=== PATIENT | female | born 1995 | race African-American/Black ===

== ENCOUNTER 2022-10-01 11:31 | Emergency (ER) | payer MEDICAID, SELFPAY ==
--- NOTE | ~2022-10-01 | US_ITS ---
EXAMINATION: US OB LIMITED CLINICAL INFORMATION: Mid abdominal pain at 6 months of . LMP of 03/27/2022. COMPARISON: None TECHNIQUE: Sonographic imaging of the pelvis is performed using a transabdominal transducer. FINDINGS: Limited OB imaging examination is performed. Single viable intrauterine gestation is present. The fetus is in cephalic presentation. Normal movement is observed. heart rate is 152 bpm. Limited biometry performed. Femur length 5.5 cm, corresponding to estimated gestational age of 29 weeks, 1 day. The amniotic fluid volume is normal. The anterior placenta has normal echotexture. No placenta previa. The maternal structures peripheral to the gravid uterus are not well evaluated on this exam. The maternal ovaries are not seen. US/US OB limited IMPRESSION: Limited OB ultrasound demonstrates a single viable intrauterine gestation with heart rate of 152 bpm, normal amniotic fluid volume and normal appearance of the anterior placenta.
[2022-10-01 11:49] VITALS: BP 128/71; PULSE 73; RESP 18; TEMP 37; O2SAT 98; BMI 27.3
[2022-10-01 12:18] LABS: Hematocrit 36.1 % (37.0-47.0); Hemoglobin 12.4 g/dl (12.0-16.0); Mean Corpuscular HGB Conc 34.3 g/dl (31.0-35.0); Mean Corpuscular Hemoglobin 31.1 pg (27.0-33.0); Mean Corpuscular Volume 90.5 fL (80.0-98.0); Platelet Count 223 X10*3/uL (160-400); Red Blood Count 3.99 X10*6/uL (4.20-5.50); Red Cell Distribution Width 13.3 % (11.0-16.0)
[2022-10-01 12:19] LABS: WBC ABN SCTR FOR CBC 1
[2022-10-01 12:32] LABS: Alanine Aminotransferase 11 U/L (0-31); Albumin Level 3.3 g/dL (3.5-5.0); Alkaline Phosphatase 62 U/L (39-117); Anion Gap 13 (12-20); Aspartate Amino Transferase 14 U/L (5-31); Bilirubin Total 0.3 mg/dL (0.0-1.0); Blood Urea Nitrogen 10 mg/dL (9-16); Calcium 9.3 mg/dL (8.4-10.2); Carbon Dioxide 21 mmol/L (22-29); Chloride 106 mmol/L (96-108); Creatinine Clr Calc Pharmacy 119.1; Estimated Glomerular Filt Rate > 60; Glucose Random 83 mg/dL (60-115); Magnesium 1.9 mg/dL (1.6-2.6); Potassium 4.4 mmol/L (3.3-5.1); Sodium 136 mmol/L (135-145)
[2022-10-01 12:34] LABS: HCG Quantitative 3437 mIU/mL
[2022-10-01 12:43] LABS: Band Neutrophils Percent 0 % (3-5); Basophils Percent Manual 1 % (0-2); Eosinophils Percent Manual 1 % (0-4); Lymphocytes Percent Manual 29 % (20-40); Monocytes Percent Manual 5 % (2-11); Neutrophils Percent Manual 64 % (45-73)
[2022-10-01 12:45] LABS: Basophils Abs Manual 0.1 X10*3/uL (0.0-0.2); Eosinophils Absolute Manual 0.1 X10*3/uL (0.0-0.4); Lymphocytes Absolute Manual 2.5 X10*3/uL (1.2-4.9); Monocytes Absolute Manual 0.4 X10*3/uL (0.1-1.2); Neutrophils Absolute Manual 5.6 X10*3/uL (2.0-8.3); Platelet Estimate NORMAL (NORMAL); Platelet Morphology Comment NORMAL; RBC Morphology NORMAL; White Blood Count 8.7 X10*3/uL (4.8-10.8)
--- NOTE | 2022-10-01 13:03 | ED.GENADULT ---
HPI - General Adult General Chief complaint: General Medical Stated complaint: , headaches, belly pain Time Seen by Provider: 10/01/22 12:39 Source: patient, family (Spouse) and personal injury legal assistant Mode of arrival: ambulatory Limitations: no limitations History of Present Illness HPI narrative: 27-year-old female 7 months no care because lack of insurance came in today for 9 days of headache, no photophobia, no neck stiffness, no fever, no chills. Patient also is complaining of mild abdominal discomfort but no vaginal bleeding or discharge. Related Data Allergies Allergy/AdvReac Type Severity Reaction Status Date / Time No Known Allergies Allergy Verified 10/01/22 11:49 Review of Systems Review of Systems: All other systems are reviewed and are negative Constitutional: Reports as per HPI and Reports no additional constitutional complaints Eyes: Reports as per HPI and Reports no additional eye complaints Reports system reviewed and no additional complaints, except as documented Cardiovascular: Reports as per HPI and Reports no additional cardiovascular complaints Respiratory: Reports as per HPI and Reports no additional respiratory complaints Gastrointestinal: Reports as per HPI and Reports no additional gastrointestinal complaints Genitourinary: Reports no additional female genitourinary complaints Musculoskeletal: Reports no additional musculoskeletal complaints Skin/Breast: Reports system reviewed and no additional complaints, except as docu Psychiatric: Reports no additional psychiatric complaints Endocrine: Reports no additional endocrine complaints Hematologic/Lymphatic: Reports no additional hematologic/lymphatic complaints Allergic/Immunologic: Reports no additional allergic/immunologic complaints Reports system reviewed and no additional complaints, except as documented and Reports Abnormal speech present [facility] Social History Social History Smoked in Last 30 Days: No Use of substances other than those prescribed or required for medical reasons: No Advance Directives: No Advance Directives Information Provided: No Physical Exam ED Vital Signs: Vital Signs - 24 hr 10/01/22 11:49 10/01/22 14:32 10/01/22 14:54 Temperature 98.6 F 97.6 F Pulse Rate 73 67 Respiratory Rate 18 16 16 Blood Pressure 128/71 107/66 Pulse Oximetry 98 98 Oxygen Delivery Method Room Air BMI result Body Mass Index 27.3 Vital signs have been reviewed as appeared to be correct. Blood pressure normal. Heart rate normal. Respiration rate normal. Temperature normal. Oxygen saturation normal. Appearance: Alert. Oriented X3. No acute distress. Head: Normal external exam. Normocephalic. Atraumatic. No Salas signs noted. No raccoon eyes noted Eyes: PERRLA. EOMI. Conjunctiva and sclera normal. Eyelids normal. ENT: TM's Normal. Pharynx normal. Uvula midline. Moist mucous membranes. No trismus noted. No drooling noted. No muffled voice noted. Neck: Normal inspection. Neck supple. FROM. No adenopathy. Thyroid Normal. No meningeal signs. No neck mass noted. CVS: Normal heart rate and rhythm. Heart sound normal. No murmurs noted. Pulses normal throughout. Respiratory: No respiratory distress. Painless inspiration. Breath sounds normal. No wheezes/rales/rhonchi noted. Chest nontender. No accessory muscle usage noted or decreased air movement noted. Abdomen: Soft and nontender. Bowel sounds normal in all 4 quadrants. No distention noted. No organomegaly noted. No visible injury noted. Back: No CVA tenderness. Full range of motion noted. Skin: Skin warm and dry. Normal skin color. Normal skin turgor. No rashes/lesions/lacerations noted. Extremities: No lower extremity edema. Extremities exhibit normal range of motion. Extremities nontender. Neuro: Oriented X 3. Cranial nerve exam: II-XII are grossly intact No motor deficit. No sensory deficit. Reflexes normal. Course Course Course Narrative: 27-year-old female came in with a headache for 9 days, patient now has no headache, able to tolerate p.o. intake with no nausea or vomiting, no abdominal pain, abdominal ultrasound showing normal 7 months viable , no vaginal bleed or discharge. Patient with normotensive and no protein in the urine. Medications Administered Discontinued Medications Generic Name Dose Route Start Last Admin Trade Name Freq PRN Reason Stop Dose Admin Sodium Chloride 1,000 mls @ 999 mls/hr 10/01/22 13:00 10/01/22 14:13 Ns IV 10/01/22 14:00 999 mls/hr .Q1H1M ONE Administration Morphine Sulfate 2 mg 10/01/22 13:00 10/01/22 14:54 Morphine Sulfate 2 Mg/Ml Cartridge IVPUSH 10/01/22 13:01 2 mg ONCE ONE Administration Protocol Medical Decision Making Differential Diagnosis Differential Diagnoses: The differential diagnosis associated with the presentation includes (Headache, electrolyte abnormalities, severe anemia, viable .) Admission/Observation Consideration of admission/observation: Escalation of care including admission/observation considered Lab Data MDM Lab Attestation statement: I reviewed the patient's lab results. 10/01/22 12:03 10/01/22 12:03 Labs: Lab Results 10/01/22 10/01/22 10/01/22 Range/Units 12:03 12:03 14:06 WBC 8.7 (4.8-10.8) X10*3/uL RBC 3.99 L (4.20-5.50) X10*6/uL Hgb 12.4 (12.0-16.0) g/dl Hct 36.1 L (37.0-47.0) % MCV 90.5 (80.0-98.0) fL MCH 31.1 (27.0-33.0) pg MCHC 34.3 (31.0-35.0) g/dl RDW 13.3 (11.0-16.0) % Plt Count 223 (160-400) X10*3/uL MPV 12.0 (9.4-12.3) fL Immature Gran % (Auto) Cancelled Neut % (Auto) Cancelled Lymph % (Auto) Cancelled [place] % (Auto) Cancelled Eos % (Auto) Cancelled Baso % (Auto) Cancelled Lymph # (Auto) Cancelled [place] # (Auto) Cancelled Eos # (Auto) Cancelled Baso # (Auto) Cancelled Abs Immat Gran (auto) Cancelled Absolute Neuts (auto) Cancelled Absolute Nucleated RBC 0.000 (0.0-0.012) X10*3/uL Nucleated RBC % (auto) 0.0 (0.0-0.2) /100WBC Neutrophils % (Manual) 64 (45-73) % Band Neutrophils % 0 L (3-5) % Lymphocytes % (Manual) 29 (20-40) % Monocytes % (Manual) 5 (2-11) % Eosinophils % (Manual) 1 (0-4) % Basophils % (Manual) 1 (0-2) % Abs Neuts (Manual) 5.6 (2.0-8.3) X10*3/uL Lymphocytes # (Manual) 2.5 (1.2-4.9) X10*3/uL Monocytes # (Manual) 0.4 (0.1-1.2) X10*3/uL Eosinophils # (Manual) 0.1 (0.0-0.4) X10*3/uL Basophils # (Manual) 0.1 (0.0-0.2) X10*3/uL Platelet Estimate NORMAL (NORMAL) Plt Morphology Comment NORMAL RBC Morphology NORMAL Sodium 136 (135-145) mmol/L Potassium 4.4 (3.3-5.1) mmol/L Chloride 106 (96-108) mmol/L Carbon Dioxide 21 L (22-29) mmol/L Anion Gap 13 (12-20) BUN 10 (9-16) mg/dL Creatinine 0.73 (0.5-1.4) mg/dL Estim Creat Clear Calc 119.1 Estimated GFR > 60 Random Glucose 83 (60-115) mg/dL Calcium 9.3 (8.4-10.2) mg/dL Magnesium 1.9 (1.6-2.6) mg/dL Total Bilirubin 0.3 (0.0-1.0) mg/dL AST 14 (5-31) U/L ALT 11 (0-31) U/L Alkaline Phosphatase 62 (39-117) U/L Total Protein 7.0 (6.5-8.0) g/dL Albumin 3.3 L (3.5-5.0) g/dL Beta HCG, Quant 3437 mIU/mL Urine Color Yellow Urine Appearance Clear Urine pH 7.5 (5.0-9.0) Ur Specific [place] 1.015 (1.005-1.025) Urine Protein Trace (Neg-Trace) mg/dL Urine Glucose (UA) Negative (Negative) mg/dL Urine Ketones Negative (Negative) mg/dL Urine Blood Negative (Negative) Urine Nitrite Negative (Negative) Ur Leukocyte Esterase Small (1+) H (Negative) Urine RBC 0-2 (0-2) /HPF Urine WBC 6-10 H (0-5) /HPF Ur Squamous Epith Cells 3-5 (0-2) /HPF Urine Bacteria 2+ (None Seen) Hyaline Casts 0-2 (0-2) /LPF Independent Interpretation I performed an independent interpretation of an: Ultrasound (Limited OB ultrasound: Viable intrauterine gestation with heart rate of 152.) Radiology Impression Discussion of test interpretation with radiology: I have reviewed the radiologist's reading. Discharge Plan Discharge Clinical Impression: Headache, Third trimester Patient Disposition: Home, Self-Care Instructions: Acute Headache (ED) Referrals: Physician,None [Primary Care Provider] -
[2022-10-01] MEDS: 0.9 % Sodium Chloride 1,000 ML 999 ML IV (14:13)
[2022-10-01 14:14] LABS: Appearance Urine Clear; Color Urine Yellow; Glucose Urine UA Negative (Negative); Leukocyte Esterase Urine Small (1+) (Negative); Nitrite Urine Negative (Negative); PH 7.5 (5.0-9.0); Specific Gravity - Urine 1.015 (1.005-1.025); UMIC TRIGGER UACC YES; Urine Blood Negative (Negative); Urine Ketones Negative (Negative); Urine Protein Trace mg/dL (Neg-Trace)
[2022-10-01 14:27] LABS: Bacteria Urine 2+ (None Seen); Hyaline Casts Urine 0-2 /LPF (0-2); RBC Urine 0-2 /HPF (0-2); UACC Culture Trigger YES
[2022-10-01 14:32] VITALS: BP 107/66; PULSE 67; RESP 16; TEMP 36.4; O2SAT 98
[2022-10-01 14:54] VITALS: RESP 16
[2022-10-01] MEDS: Morphine Sulfate 2 MG/ML CARTRIDGE IVPUSH (14:54)
--- NOTE | 2022-10-01 15:32 | PC.NURSE ---
report received from SVETLANA Mon Pt is resting on stretcher at this time, respirations even and unlabored, fluids still running
== END 2022-10-01 16:10 | disposition home or self-care (01) ==
PROVIDERS: Physician Assistant Medical; Emergency Provider Emergency Medicine
DX: O26.93 Pregnancy related conditions, unspecified, third trimester (principal); R51.9 Headache, unspecified; R10.2 Pelvic and perineal pain; Z79.899 Other long term (current) drug therapy; Z3A.28 28 weeks gestation of pregnancy
CPT/HCPCS: 36415; 76815; 80053; 81001; 83735; 84702; 85007; 85027; 87086; 96361; 96374; 99284; J2270

== ENCOUNTER 2024-07-11 16:16 | Outpatient (REF) | payer MEDICAID, SELFPAY ==
--- OUTSIDE RECORDS SUMMARY | 2024-07-11 19:18 | XMS_ITS | Clinical Summary ---
Author Organization [facility] Address [address] [place] [address] Phone Care Team Providers Care Associate Field Service Engineer Name Role Phone Hanh Bang MD Primary Care Provider [phone] Allergies No known active allergies Medications No known medications Active Problems No known active problems Resolved Problems Problem Noted Date Diagnosed Date Resolved Date Class 1 obesity 05/06/2024 05/06/2024 Proteinuria during 05/06/2024 05/06/2024 Uterine contractions 05/03/2024 025 Pre-diabetes 01/18/2024 05/06/2024 Encounters Date Type Department Care Team Description 05/03/2024 8:32 PM EST - 05/06/2024 2:12 PM [facility] Hospital Encounter [facility] [address] [place] [address] Jessy Palm MD Discharge Disposition: Home or Self Care from Last 3 Months Surgical History Surgery Date Site/Laterality Comments OTHER SURGICAL HISTORY PROCEDURE: DENIES PREVIOUS SURGERY Medical History Medical History Date Comments Patient denies medical problems DX:Patient denies medical problems 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; COMMENT: FOB will need to be tested Gestational HTN 02/08/2023 DX:Gestational H TN Pre-diabetes 01/18/2024 Proteinuria during 05/06/2024 Class 1 obesity 05/06/2024 Family History Medical History Relation Name Comments No Known Problems Brother Other: she does not speak Daughter No Known Problems Father pain No Known Problems Maternal Grandfather No Known Problems Maternal Grandmother No Known Problems Mother pain No Known Problems Paternal Grandfather No Known Problems Paternal Grandmother No Known Problems Sister Breast cancer Neg Hx Cervical cancer Neg Hx Colon cancer Neg Hx Ovarian cancer Neg Hx Pancreatic cancer Neg Hx Prostate cancer Neg Hx Uterine cancer Neg Hx Relation Name Status Comments Brother Alive Daughter Alive Father Alive Maternal Grandfather Maternal Grandmother Mother Alive Paternal Grandfather Paternal Grandmother Sister Alive Social History Tobacco Use Types Packs/Day Years Used Date Smoking Tobacco: Never Smokeless Tobacco: Never Alcohol Use Standard Drinks/Week Comments Not Currently 0 (1 standard drink = 0.6 oz pur e alcohol) Housing Instability Answer Date Recorde d Are you worried that in the next 2 months you may not have stable housing? No 05/03/2024 Food Access & Nutrition Answer Date Rec orded Do you have access to a vari ety of food including fruits and vegetables? Yes 05/03/2024 Access to Healthcare Answer Date Record ed Within the last 3 months, ho kortney many times did you visit the emergency department for your medical care? 0 05/03/2024 Health Literacy Answer Date Recorded How often do you need to hav e someone help you when you read instructions, pamphlets, or other written material from your doctor or pharmacy? Never 05/03/2024 Caregiver: How often do you need to have someone help you when you read instructions, pamphlets, or other written material from your doctor or pharmacy? Not on file 05/03/2024 Financial Risk Answer Date Recorded How hard is it for you to pa y for the very basics like food, housing, medical care, and air conditioning / heating? Not very hard 05/03/2024 Transportation Answer Date Recorded Has the lack of transportati on kept you from meetings, work, or from getting things needed for daily living? No Has the lack of transportati on kept you from medical appointments or from getting medications? No 05/03/2024 Social Isolation Answer Date Recorded How often do you feel lonely or isolated from th ose around you? Never 05/03/2024 Food Risk Answer Date Recorded Within the past 12 months we worried whether our food would run out before we got money to buy more. Never true 05/03/2024 Within the past 12 months th e food we bought just didn't last and we didn't have money to get more. Never true 05/03/2024 Dependent Care Answer Date Recorded Do you need help finding or paying for care for your loved ones. For example, early childhood worker or elderly care for an older adult? No 05/03/2024 Education Answer Date Recorded Do you think completing more education or training, like finishing a GED, going to college, or learning a trade, would be helpful for you? No 05/03/2024 Employment and Income Answer Date Recor ded During the last four weeks, have you been actively looking for work? No 05/03/2024 Living Situation Answer Date Recorded What is your living situation? 0 05/03/2024 Interpersonal Safety Answer Date Record ed Physical Abuse 05/03/2024 Verbal Abuse 05/03/2024 Comments No Sex and Gender Information Value Date Recorded Sex Assigned at Not on file Legal Sex Female 8:45 PM EST Gender Identity Not on file Sexual Orientation Not on file Obstetrics History Para Term AB IAB SAB Ectopic Multiple Livin g Live Births 3 3 0 3 3 Date Outcome GA Total Labor Labor/2nd/3rd Weight Sex Type Anes PTL Alma Rosa A1 A5 Name Clin Para Para 2024 Para 0h 09m 0h 06m/0h 03m 3320 g (117.1 oz) M Vag-S pont Nitrou s Oxide N Livin g 8 9 [place] [facility] Gustavo Alena rdedy CNM Complications:Shoulder Dysto kristy Delivery [facility] ([facility]) Summary Episode Dates Number of Fetuses Estimated Date of Delivery 05/03/2024 - Present (07/11/2024) 1 05/07/2024 (set by Diana Elam RN on 05/04/2024 based on Last Menstrual Period on 08/01/2023 (Exact Date)) Dating Summary Based On TREVOR GA Diff Last Menstrual Period on 08/01/2023 (Exact Date) 05/07/2024 Working Vitals Date GA Fund Present FHR Mvmt BP Weight Edema Alb Glu Ket Dil/ Eff/Sta 39w3d Inpatient data not displayed here. See encounter summary. Notes Progress Notes - Hospital En counter - 05/06/2024 - GA:39w3d 05/06/2024 - 39w3d - Valerie Carpenter CNM Obstetrical Discharge Form Primary provider: SHELLY Provider EDC: 03/11/2024, by Last Menstrual Period Gestational Age at Time of Delivery: Information for the patient's : Alireza Bishop [[id number]] Gestational Age: 39w3d Antepartum complications: Problems (from 03/05/24 to present) No problems associated with this episode. Date and Time of Delivery: 05/03/2024 9:46 PM Delivered By: Valerie Carpenter CNM ; Alireza Bishop [[id number]] Delivery Providers Delivering clinician: Mercedes Skaggs CNM Provider Role Delivery Assist Delivery Nurse Delivery Type: Vaginal, Spontaneous Baby: Alireza Bishop is a , Male, weighing 3320 g (117.1 oz). Scores: Minute(s) 1: 8 5: 9 10: Anesthesia: Method: Nitrous Oxide Analgesics: Intrapartum complications: Labor and Delivery Complications: Shoulder Dystocia Episiotomy: Episiotomy: None Episiotomy indiciations: none Laceration: none Alireza Bishop [[id number]] Lacerations Episiotomy: None Perineal laceration: None Other lacerations?: No Repair suture: None Perineal laceration: None 1 Placenta: Placenta delivery: Spontaneous Feeding method: breast feeding only Complications: dx; complications ob (paragraph): no complications Physical Exam: Physical Exam BP: 126/83 (05/06 899) Heart Rate: 57 (05/06 899) Temp: 36.6 ??C (97.9 ??F) (05/06 899) Temp Source: Temporal (05/06 899) SpO2: 99 % (05/06 899) Pending Labs: @DCPENDLAB@ Rh Immune globulin given: no Brief Delivery Details: Vaginal Routine care. Patient is currently breastfeedingThe patient's blood type is O Positive. The baby's blood type is O Positive. Rhogam is not indicated. Discharge Date: 05/06/24 Assessment & Plan Plan: Discharge Medications: Your medication list You have not been prescribed any medications. Follow-up: Follow-up appointment for 5-6 weeks for routine pp visit 05/05/2024 - 39Beth Mars LSW marine services technician referred due to issues with transportation to medical appointments, also lack of car seat for child. Due to [facility] [employer] insurance, nursing able to supply free car seat. Patient reports all other provisions for baby, including WIC. Patient reports that she is unable to navigate public transportation and misses some medical appointments. does drive although unable to take time off work for medical appointments scheduled. Noted that [employer] web site is available in Korean and Hungarian Creole. This policy writer sales book marked web site on cell phone for patient to better navigate public transportation, also suggested appointments be made when is not working, if able. marine services technician will remain available to assess and support as indicated. 05/05/2024 - 39Beth Mars LSW 05/05/24 1641 [employer] Is an enrolled agent used? Yes Information Interpreted Other (Comment) (SW assessment) [employer] Name or Number Niyah #[id number] Type of Resource Used Video remote enrolled agent Length of Time [employer] Utilized (min) 10 Minutes 05/05/2024 - 39wearlene - Vandana Cloud CNM Obstetrics Progress Note Subjective Subjective Pain: reports when she eats or drinks she feels pain Bleeding: lochia moderate PO's: regular diet Voiding: without difficulty Ambulating: well Feeding: breast and formula feeding Objective Objective: General Appearance: Comfortable. Vital signs: (most recent): Blood pressure 118/69, pulse 65, temperature 37.1 ??C (98.7 ??F), temperature source Temporal, resp. rate 16, last menstrual period 08/01/2023, SpO2 98%, currently . Vitals Temp: 37.1 ??C (98.7 ??F) (05/05 129) Heart Rate: 65 (05/05 129) Resp: 16 (05/05 129) BP: 118/69 (01/05 0130) Physical Exam General: well Chest/Breasts: nipples intact Fundus Fundal Tone: Firm Fundal Position: Midline Fundus Location: At umbilicus Lochia Lochia Color: Rubra Amount: Light Lochia Odor: None Clots: None Perineum Appearance: Intact Intervention: Ice on, Kellie bottle Extremities: symmetric Data Labs Reviewed and Significant for: Lab Results Component Value Date RBC 4.20 05/03/2024 HCT 34.1 (L) 05/03/2024 Principal Problem: Uterine contractions Status Information for the patient's : Alireza Bishop [[id number]] [facility] 7012/[facility] 7012-1 Problem-based Assessment and Plan Hazel Bishop is a 28 y.o. day 2 s/p Vaginal, Spontaneous. 1. Post care: meeting all goals 2. Hemodynamics: stable 3. Pain: controlled 4. Method of Feeding: breast and formula feeding 5. Anticipate discharge tomorrow; will get Depo only after she stops bleeding Vandana Cloud CNM 05/05/2024 05/04/2024 - 39wearlene - Mercedes Skaggs CNM Obstetrics Progress Note Subjective Subjective Pain: denies Bleeding: lochia moderate PO's: regular diet Voiding: without difficulty Ambulating: well Feeding: breast and formula feeding Objective Objective: Vital signs: (most recent): Blood pressure 137/74, pulse 78, temperature 36.5 ??C (97.7 ??F), temperature source Temporal, resp. rate 18, SpO2 100%, currently . Vitals Temp: 36.5 ??C (97.7 ??F) (05/04 352) Heart Rate: 78 (05/04 352) Resp: 18 (05/04 352) BP: 137/74 (05/04 352) Physical Exam General: well Chest/Breasts: nipples intact Fundus Fundal Tone: Firm Fundal Position: Midline Fundus Location: At umbilicus Lochia Lochia Color: Rubra Amount: Light Lochia Odor: None Clots: None Perineum Appearance: Well approximated, Intact Intervention: Ice on, Kellie bottle, Medicated pads Extremities: symmetric Data Labs Reviewed and Significant for: Lab Results Component Value Date RBC 4.20 05/03/2024 HCT 34.1 (L) 05/03/2024 Principal Problem: Uterine contractions Status Information for the patient's : Alireza Bishop [[id number]] [facility] 7012/[facility] 7012-1 Problem-based Assessment and Plan Hazel Bishop is a 28 y.o. day 1 s/p Vaginal, Spontaneous. 1. Post care: meeting all goals 2. Hemodynamics: stable 3. Pain: controlled 4. Method of Feeding: breast and formula feeding 5. Anticipate discharge tomorrow Mercedes Skaggs CNM 05/04/2024 Last Filed Vital Signs Vital Sign Reading Time Taken Comments Blood Pressure 126/83 05/06/2024 9:00 AM EST Pulse 57 05/06/2024 9:00 AM EST Temperature 36.6 ??C (97.9 ??F) 05/06/2024 9:00 AM ES T Respiratory Rate 16 05/06/2024 9:00 AM EST Oxygen Saturation 99% 05/06/2024 9:00 AM EST Inhaled Oxygen Concentration - - Weight 67.9 kg (149 lb 12.8 oz) 02/17/2023 3:15 PM EDT Height 167.6 cm (5' 6 ) 11/03/2022 1:22 PM EDT Body Mass Index 24.18 11/03/2022 1:22 PM EDT Plan of Treatment Health Maintenance Due Date Last Done Comments Hepatitis B Vaccines (1 of 3 - 19+ 3-dose series) 2012 Cervical Cancer Screening: P ap Smear 2014 Depression Screening 05/26/2023 COVID-19 Vaccine (2 - 2023-2 5 season) 2023 2022 Social Influencers of Health Screening 05/03/2025 05/03/2024 DTaP,Tdap,and Td Vaccines (2 - Td or Tdap) 11/07/2032 11/07/2022 Influenza Vaccine Completed 02/06/2024 HIV Screening Completed 05/03/2024 Hepatitis C Screening Completed 05/03/2024 HIB Vaccines Aged Out No longer eligi ble based on patient's age to complete this topic HPV Vaccines Aged Out No longer eligi ble based on patient's age to complete this topic Hepatitis A Vaccines Aged Out No long er eligible based on patient's age to complete this topic IPV Vaccines Aged Out No longer eligi ble based on patient's age to complete this topic MMR Vaccines Aged Out No longer eligi ble based on patient's age to complete this topic Meningococcal ACWY Vaccine Aged Out N o longer eligible based on patient's age to complete this topic Meningococcal B Vacine Aged Out No lo nger eligible based on patient's age to complete this topic Pneumococcal Vaccine: Pediat rics (0 to 5 Years) and At-Risk Patients (6 to 64 Years) Aged Out No longer eligi ble based on patient's age to complete this topic RSV Immunization Patients Un ronnie 20 months Aged Out No longer eligible b ased on patient's age to complete this topic Varicella Vaccines Aged Out No longer eligible based on patient's age to complete this topic Procedures Procedure Name Priority Date/Time Associated Diagnosis Comments MANUAL DIFFERENTIAL - SYSMEX WAM STAT 05/03/2024 11:08 PM EST HIV 1, 2 ANTIBODY, P24 ANTIGEN WITH REFLEX TO DIFFERENTIATION Add-On 05/03/2024 11:08 PM EST HEPATITIS C ANTIBODY Add-On 05/03/2024 11:08 PM EST HEPATITIS B SURFACE ANTIGEN WITH CONFIRMATION Add-On 05/03/2024 11:08 PM EST CBC WITH AUTO DIFFERENTIAL STAT 05/03/2024 11:08 PM EST TREPONEMA PALLIDUM ANTIBODY WITH REFLEX TO RPR AND PARTICLE AGGLUTINATION STAT 05/03/2024 11:08 PM EST TYPE AND SCREEN STAT 05/03/2024 11:08 PM EST CBC AND DIFFERENTIAL STAT 05/03/2024 11:08 PM EST from Last 3 Months Results * Hepatitis C antibody (05/03/2024 11:08 PM EST) Pathologist [facility] Hepatitis C Antibody Negative Negative LAB CHEMISTRY METHOD 05/04/2024 1:16 PM EST [facility] Blood Venous blood specimen / Unknown Venipuncture / Unknown 05/03/2024 11:08 PM EST 05/03/2024 11:12 PM EST Bogdan Hurst MD LAB BLOOD ORDERABLES Final Resul t Performing Organization Address City/[facility]/ZIP Co de Phone Number [facility] [address] [place] [address], [place] [phone] * HIV 1,2 antibody, p24 antigen with reflex to differentiation (05/03/2024 11:08 PM EST) [facility] HIV Combo AB/AG Negative Negative LAB CHEMISTRY METHOD 05/04/2024 1:17 PM EST [facility] Blood Venous blood specimen / Unknown Venipuncture / Unknown 05/03/2024 11:08 PM EST 05/03/2024 11:12 PM EST Narrative [facility] - 05/04/2024 1:17 PM EST This assay is a 4th generation assay allowing for earlier detection of HIV infection by detecting the presence of the HIV-1 p24 antigen as well as the traditional antibodies to HIV type 1 (including group O) and type 2. ??Use of a 4th generation assay is the current CDC recommendation for HIV screening. Bogdan Hurst MD LAB BLOOD ORDERABLES Final Resul t Performing Organization Address [facility]/ZIP Co de Phone Number [facility] [address] [place] [address], [place] [phone] * Hepatitis B surface antigen with reflex to confirmation (05/03/2024 11:08 PM EST) Pathologist [facility] Hepatitis B Surface Ag Negative Negative LAB CHEMISTRY METHOD 05/04/2024 12:48 PM EST [facility] Blood Venous blood specimen / Unknown Venipuncture / Unknown 05/03/2024 11:08 PM EST 05/03/2024 11:12 PM EST Narrative [facility] - 05/04/2024 12:48 PM EST Over the counter supplements containing high doses of biotin may interfere with this assay. ??If interference is suspected, patients shoud be retested after refraining from biotin supplements for 72 hours. Bogdan Hurst MD LAB BLOOD ORDERABLES Final Resul t Performing Organization Address [facility]/ZIP Co de Phone Number [facility] [address] [place] [address], [place] [phone] * Treponema pallidum antibody with reflex to RPR and particle agglutination (05/03/2024 11:08 PM EST) Pathologist [facility] T. Pallidum Antibodies Negative Negative LAB CHEMISTRY METHOD 05/04/2024 1:00 AM EST [facility] Blood Venous blood specimen / Unknown Venipuncture / Unknown 05/03/2024 11:08 PM EST 05/03/2024 11:12 PM EST Mercedes Skaggs CNM LAB BLOOD ORDERABLES Final Result Performing Organization Address [facility] Co de Phone Number [facility] [address] [place] [address], [place] [phone] * (ABNORMAL) Manual differential (05/03/2024 11:08 PM EST) Neutrophils % 89.0 % LAB HEMETOLOGY METHOD 05/03/2024 11:52 PM EST [facility] Lymphocytes % 3.0 % LAB HEMETOLOGY METHOD 05/03/2024 11:52 PM [facility] Monocytes % 8.0 % LAB HEMETOLOGY METHOD 05/03/2024 11:52 PM [facility] Eosinophils % 0.0 % LAB HEMETOLOGY METHOD 05/03/2024 11:52 PM [facility] Basophils % 0.0 % LAB HEMETOLOGY METHOD 05/03/2024 11:52 PM [facility] Neutrophils Absolute Manual 8.81(H) 1.50 - 7.00 K/mcL LAB HEMETOLOGY METHOD 05/03/2024 11:52 PM [facility] Lymphocytes Absolute 0.30(L) 1.00 - 5.00 K/mcL LAB HEMETOLOGY METHOD 05/03/2024 11:52 PM [facility] Monocytes Absolute Manual 0.79 0.20 - 1.00 K/mcL LAB HEMETOLOGY METHOD 05/03/2024 11:52 PM [facility] Eosinophils Absolute Manual 0.00 0.00 - 0.50 K/mcL LAB HEMETOLOGY METHOD 05/03/2024 11:52 PM [facility] Basophils Absolute Manual 0.00 0.00 - 0.20 K/mcL LAB HEMETOLOGY METHOD 05/03/2024 11:52 PM [facility] Rbc Morphology Consistent with indices Consistent with indices, Normal for [place] LAB HEMETOLOGY METHOD 05/03/2024 11:52 PM [facility] Platelet Morphology - WAM See Note(A) Normal LAB HEMETOLOGY METHOD 05/03/2024 11:52 PM [facility] Blood Venous blood specimen / Unknown Venipuncture / Unknown 05/03/2024 11:08 PM EST 05/03/2024 11:12 PM EST Mercedes Skaggs CNM LAB BLOOD ORDERABLES Final Result [facility] [address] [place] [address], * (ABNORMAL) CBC auto differential (05/03/2024 11:08 PM EST) [facility] WBC 9.9 4.8 - 10.8 K/mcL LAB HEMETOLOGY METHOD 05/03/2024 11:52 PM [facility] RBC 4.20 3.80 - 4.80 M/mcL LAB HEMETOLOGY METHOD 05/03/2024 11:52 PM [facility] Hemoglobin 10.7(L) 11.5 - 16.0 g/dL LAB HEMETOLOGY METHOD 05/03/2024 11:52 PM [facility] Hematocrit 34.1(L) 35.0 - 47.0 % LAB HEMETOLOGY METHOD 05/03/2024 11:52 PM [facility] MCV 81.2 79.0 - 98.0 FL LAB HEMETOLOGY METHOD 05/03/2024 11:52 PM [facility] MCH 25.5(L) 27.0 - 32.0 pcg LAB HEMETOLOGY METHOD 05/03/2024 11:52 PM [facility] MCHC 31.4(L) 32.0 - 37.0 g/dL LAB HEMETOLOGY METHOD 05/03/2024 11:52 PM [facility] RDW 16.0(H) 11.0 - 15.0 % LAB HEMETOLOGY METHOD 05/03/2024 11:52 PM [facility] Platelets 05/03/2024 11:52 PM [facility] Comment:Not measured. Platel ets appear adequate but clumped. Reviewed by slide MPV 12.8(H) 7.0 - 11.0 FL LAB HEMETOLOGY METHOD 05/03/2024 11:52 PM [facility] NRBC 0.4 <1.0 % LAB HEMETOLOGY METHOD 05/03/2024 11:52 PM [facility] NRBC Absolute 0.04 <0.10 K/mcL LAB HEMETOLOGY METHOD 05/03/2024 11:52 PM EST [facility] Blood Venous blood specimen / Unknown Venipuncture / Unknown 05/03/2024 11:08 PM EST 05/03/2024 11:12 PM EST Mercedes Skaggs [facility] BLOOD ORDERABLES Final Result Performing Organization Address City/[facility]/ZIP Co de Phone Number [facility] [address] [place] [address], [place] [phone] * Type and screen (05/03/2024 11:08 PM EST) ABO Group O 05/04/2024 12:28 AM EST [facility] Rh Type Positive 05/04/2024 12:28 AM EST [facility] Antibody Screen Negative 05/04/2024 12:28 AM EST [facility] Blood Venous blood specimen / Unknown Venipuncture / Unknown 05/03/2024 11:08 PM EST 05/03/2024 11:12 PM EST Mercedes Allard [facility] BLOOD BANK TEST ORDERAB LES Final Result Performing Organization Address [facility]/ZIP Co de Phone Number [facility] [address] [place] [address], [place] [phone] from Last 3 Months Insurance [facility] [address] [place] [address] Advance Directives * Full Code - Default (Latest Code Status on File) Date Activated Date Inactivated Comments 05/03/2024 10:44 PM 05/06/2024 4:18 PM This is order is used when code status has not been discussed with the patient, or code status is otherwise unknown/unconfirmed To update the patient's code status, place a code status order. Do not modify or discontinue any currently active code status orders. * Full Code - Confirmed Date Activated Date Inactivated Comments 05/03/2024 8:40 PM 05/03/2024 10:44 PM This code sta tus was ascertained in the following way: Code status discussion: discussion with patient To update the patient's code status, place a code status order. Do not modify or discontinue any currently active code status orders. Care Teams Associate Field Service Engineer Relationship Specialty Start Date End Date Hanh Bang MD [address] [place] [address] [place] [address] PCP - General 03/27/23
[2024-07-12 03:53] LABS: Syphilis Screen Nonreactive (Nonreactive)
[2024-07-12 04:25] LABS: HIV AB/AG Nonreactive (Nonreactive); HIV Num 1 0.07 S/CO (0.00-0.99); ~HepC Num1 0.14 S/CO (0.00-0.79); ~Hepatitis C Antibody Nonreactive (Nonreactive)
[2024-07-12 07:33] LABS: CT PCR NOT DETECTED (Not Detect.); NG PCR NOT DETECTED (Not Detect.)
== END 2024-07-11 16:17 | disposition home or self-care (01) ==
LOC: HO.HHCL 16:16
PROVIDERS: Visit Provider Family Medicine
DX: Z11.3 Encounter for screening for infections with a predominantly sexual mode of transmission (principal)
CPT/HCPCS: 86780; 86803; 87389; 87491; 87591

== ENCOUNTER 2024-10-14 10:43 | Outpatient (REF) | payer MEDICAID, SELFPAY ==
[2024-10-14 11:41] LABS: Estimated Average Glucose 111 mg/dL; Hemoglobin A1C 129.5358 umol/L; Hemoglobin A1c % 5.5 % (<6.0)
[2024-10-14 11:56] LABS: Alanine Aminotransferase 15 U/L (0-31); Albumin Level 4.5 g/dL (3.5-5.0); Alkaline Phosphatase 86 U/L (39-117); Anion Gap 9 (12-20); Aspartate Amino Transferase 20 U/L (5-31); Bilirubin Total 0.3 mg/dL (0.0-1.0); Blood Urea Nitrogen 10 mg/dL (9-16); Calcium 9.5 mg/dL (8.4-10.2); Carbon Dioxide 25 mmol/L (22-29); Chloride 107 mmol/L (96-108); Estimated Glomerular Filt Rate > 60; Glucose Random 89 mg/dL (60-115); Potassium 4.1 mmol/L (3.3-5.1); Sodium 137 mmol/L (135-145); Total Protein 7.9 g/dL (6.5-8.0)
--- OUTSIDE RECORDS SUMMARY | 2024-10-14 12:03 | XMS_ITS | Clinical Summary ---
Author Organization [facility] Address [address] [place] [id number] Phone Care Team Providers Care Tile Setter Supervisor Name Role Phone Hanh Bang MD Primary Care Provider [phone] Allergies No known active allergies Medications No known medications Active Problems No known active problems Resolved Problems Problem Noted Date Diagnosed Date Resolved Date Class 1 obesity 05/06/2024 05/06/2024 Proteinuria during 05/06/2024 05/06/2024 Uterine contractions 05/03/2024 025 Pre-diabetes 01/18/2024 05/06/2024 Surgical History Surgery Date Site/Laterality Comments OTHER [...] ed Within the last 3 months, ho w many times did you visit the emergency [...] care for your loved ones. For example, child support case officer or elderly care for an older adult? [...] N Livin g [address] [place] [address] Edna Josephilon Alena reddy, CNM Complications:Shoulder Dysto kristy Delivery Location:[facility] ([facility]) Last Filed Vital Signs Vital Sign Reading [...] age to complete this topic Meningococcal B Vaccine Aged Out No l onger eligible based on patient's age to complete [...] Procedure Name Priority Date/Time Associated Diagnosis Comments HEPATITIS C ANTIBODY Add-On 05/03/2024 11:08 PM EST HIV 1, 2 ANTIBODY, P24 ANTIGEN WITH REFLEX TO DIFFERENTIATION Add-On 05/03/2024 11:08 PM EST from Last 3 Months or Most Recently Relevant to Health Maintenance Results * Hepatitis C antibody (05/03/2024 11:08 PM EST) Hepatitis C Antibody Negative Negative LAB CHEMISTRY METHOD 05/04/2024 1:16 PM EST [facility] Venous blood specimen / Unknown Venipuncture / Unknown 05/03/2024 11:08 PM EST 05/03/2024 11:12 PM EST us Bogdan Hurst MD LAB BLOOD ORDERABLES Final Resul t [facility] [address] [place] [address], [place] [phone] * HIV 1,2 antibody, p24 antigen with reflex to differentiation (05/03/2024 11:08 PM EST) HIV Combo AB/AG Negative Negative LAB CHEMISTRY METHOD 05/04/2024 1:17 PM EST [facility] Blood Venous blood specimen / Unknown Venipuncture / Unknown 05/03/2024 11:08 PM EST 05/03/2024 11:12 PM EST Narrative [facility] - 05/04/2024 1:17 PM EST [...] MD LAB BLOOD ORDERABLES Final Resul t [facility] [address] [place] [address], [place] [phone] from Last 3 Months or Most Recently Relevant to Health Maintenance Insurance [facility] [place] [id number] [facility] Advance Directives * Full Code - Default [...] currently active code status orders. Care Teams Tile Setter Supervisor Relationship Specialty Start Date End Date Hanh Bang MD [address] [place] [phone] PCP - General 03/27/23
[2024-10-14 12:19] LABS: HIV AB/AG Nonreactive (Nonreactive); HIV Num 1 0.06 S/CO (0.00-0.99); ~HepC Num1 0.12 S/CO (0.00-0.79); ~Hepatitis C Antibody Nonreactive (Nonreactive)
[2024-10-15 02:44] LABS: CT PCR NOT DETECTED (Not Detect.); NG PCR NOT DETECTED (Not Detect.)
[2024-10-17 16:19] LABS: RPR Rapid Plasma Reagin NON-REACTIVE (NON-REACTIVE)
== END 2024-10-14 10:44 | disposition home or self-care (01) ==
LOC: HO.HHCL 10:43
PROVIDERS: Visit Provider Nurse Practitioner Family
DX: R73.03 Prediabetes (principal); Z20.2 Contact with and (suspected) exposure to infections with a predominantly sexual mode of transmission
CPT/HCPCS: 36415; 80053; 83036; 86592; 86803; 87389; 87491; 87591

== ENCOUNTER 2025-03-19 18:25 | Outpatient (REF) | payer MEDICAID, OTHER, SELFPAY ==
[2025-03-20 02:52] LABS: Bacterial Vaginosis PCR POSITIVE (Negative); Candida Group PCR DETECTED (Not Detect); Candida glab krusei PCR NOT DETECTED (Not Detect); Trichomonas vaginalis PCR NOT DETECTED (Not Detect)
[2025-03-20 03:23] LABS: CT PCR NOT DETECTED (Not Detect.); NG PCR NOT DETECTED (Not Detect.)
== END 2025-03-19 18:26 | disposition home or self-care (01) ==
LOC: HO.HHCLNP 18:25
PROVIDERS: Visit Provider Nurse Practitioner Family
DX: N89.8 Other specified noninflammatory disorders of vagina (principal); Z20.2 Contact with and (suspected) exposure to infections with a predominantly sexual mode of transmission
CPT/HCPCS: 81515; 87086; 87491; 87591